=== PATIENT | male | born 1950 | race Caucasian/White ===

== ENCOUNTER 2019-09-24 13:45 | Inpatient (IN) | payer OTHER ==
[~2019-09-24] VITALS: Ht 185.4 cm; Wt 107.5 kg
[2019-09-24 13:47] VITALS: BP 146/67
[2019-09-24 14:33] LABS: BASO # 0.1 10*3/uL (0.0-0.1); BASO % 0.8 % (0.0-1.0); EOS # 0.1 10*3/uL (0.0-0.4); EOS % 1.3 % (1.0-4.0); HEMATOCRIT 42.4 % (42.0-52.0); HEMOGLOBIN 13.9 g/dl (14.0-18.0); LYMPH # 3.3 10*3/uL (1.3-4.4); LYMPH % 34.4 % (27.0-41.0); MEAN CORPUSCULAR HGB 30.8 pg (27.0-31.0); MEAN CORPUSCULAR HGB CONC 32.8 g/dl (33.0-37.0); MEAN PLATELET VOLUME 9.9 fl (9.6-12.3); MONO # 1.2 10*3/uL (0.1-1.0); MONO % 12.3 % (3.0-9.0); NEUT # 4.9 10*3/uL (2.3-7.9); PLATELET COUNT AUTOMATED 293 10*3/uL (130-400); RED BLOOD COUNT 4.51 10*6/uL (4.50-5.90); RED CELL DISTRI WIDTH 13.2 % (0-14.5); WHITE BLOOD COUNT 9.7 10*3/uL (4.8-10.8)
--- NOTE | 2019-09-24 14:40 | NUR ---
PT WAS PLACED IN A GROWN, STATES TO ME HE IS VERY SAD AND SHAKY. I ASKED HIM IF HE WAS SUICIAL AND HE STATES HE DOES NOT KNOW WHAT THAT MEASN, I RESTATED AND ASKED HIM IF HE WANTED HARMSELF OR , HE SAID NO, HE STATES" I AM SAD AND ANS SHAKY AND WASNT HELP FOR THAT BECAUSE MY MEDICAINE IS NOT WORKING". PT IS CALM AND COOPERTIVE.
[2019-09-24 14:41] LABS: ALBUMIN 3.5 gm/dl (3.1-4.5); ALKALINE PHOSPHATASE 54 U/L (45-117); BUN 14 mg/dl (7-24); CHLORIDE 111 mmol/L (98-107); CREATININE 1.08 mg/dL (0.70-1.30); POTASSIUM 5.1 mmol/L (3.5-5.1); SGOT/AST 33 IU/L (3-35); SGPT/ALT 20 U/L (12-78); SODIUM 142 mmol/L (136-145); TOTAL PROTEIN 7.4 gm/dL (6.4-8.2)
[2019-09-24 14:45] LABS: ACETAMINOPHEN (TYLENOL) < 5.0 ug/ml (10-30); ETHYL ALCOHOL < 3.0 mg/dl (<3)
[2019-09-24 14:53] LABS: BILIRUBIN NEGATIVE (NEGATIVE); BLOOD 1+ (NEGATIVE); CLARITY CLEAR (CLEAR); COLOR YELLOW (YELLOW); GLUCOSE NEGATIVE (NEGATIVE); KETONE NEGATIVE (NEGATIVE); LEUKO ESTERASE NEGATIVE (NEGATIVE); NITRITE NEGATIVE (NEGATIVE); SPECIFIC GRAVITY <= 1.005 (1.005-1.030); UROBILINOGEN 0.2 E.U./dl (0.2-1.0)
[2019-09-24 15:01] LABS: URINE AMPHETAMINES < 1000 (1000ng/ml); URINE BARBITURATES < 200 (200ng/ml); URINE BENZODIAZEPINES < 200 (200ng/ml); URINE CANNABINOIDS (THC) < 50 (50ng/ml); URINE COCAINE < 300 (300ng/ml); URINE METHADONE < 300 (300ng/ml); URINE OPIATES < 300 (300ng/ml)
[2019-09-24 15:02] LABS: BACTERIA TRACE
[2019-09-24 15:05] LABS: URINE PHENCYCLIDINE < 25 (25ng/ml)
[2019-09-24 16:01] VITALS: BP 138/78
--- NOTE | 2019-09-24 16:01 | NUR ---
PT RESTINF IN BED, VOICES NO COMPLAINTS. PT REMAINS CLAM AND COOPERATIVE.
--- NOTE | 2019-09-24 16:37 | NUR ---
PT RESTING QUIETLY, WAITING FOR U BED.
[2019-09-24 17:02] VITALS: BP 136/63
[2019-09-24 17:16] VITALS: BP 136/63
[2019-09-24] MEDS ORDERED: COGENTIN0.5 MG PO (17:42)
[2019-09-24] MEDS ORDERED: NEXIUM20 M1 PO (17:43)
[2019-09-24] MEDS ORDERED: NAMENDA-21 PO (17:43)
[2019-09-24] MEDS ORDERED: ARICEPT10 M1 PO (17:44)
[2019-09-24] MEDS ORDERED: CRESTOR20 M1 PO (17:44)
[2019-09-24] MEDS ORDERED: VITAMIN D50000 UNIT PO (17:45)
[2019-09-24] MEDS ORDERED: ASPIRIN ADULT L81 M1 PO (17:46)
[2019-09-24] MEDS ORDERED: NORVASC5 MG PO (17:46)
[2019-09-24] MEDS ORDERED: VISTARIL25 MG PO (17:47)
[2019-09-24] MEDS ORDERED: SEROQUEL50 MG PO (17:48)
--- NOTE | 2019-09-24 17:48 | NUR ---
ANDRESSALEDA HENRY a 69 year old M admitted via wheel chair from the EMERGENCY ROOM as a voluntary admission. Arrived on unit at 1726 ALLERGIES: PCN . Vital signs are: 97.7-79-20 136/63-97%RA. VERBAL CONSENT RECEIVED FROM GUARDIAN the following forms with stated understanding: Authorization For The Release of Medical Information, Clothing List, Consent to Voluntary Admission and Hospitalization, Consent and Release Forms/Receipt of Rights, Acknowledgement of Advance Directive Information, Behavioral Health Consent Form, and Informed Consent of Medications. Admitted under the services of Dr. LORI COLE,[facility]. A search was conducted and hazardous articles were removed. Client was oriented to the unit. [place] MARSHALL PT ALERT TO PERSON, PLACE, TIME AND SITUATION. PT PLEASANT AND COOPERATIVE WITH STAFF AND PEERS. PT AMBULATORY THROUGHOUT UNIT, GAIT STEADY. PT CONTINENT OF BOWEL AND BLADDER. PT DENIES ANY SUICIDAL THOUGHTS AT THIS TIME, VERBALLY CONTRACTS FOR SAFETY IF SUCH THOUGHTS ARISE.
[2019-09-24] MEDS ORDERED: TYLENOL EXTRA500 MG PO (17:49)
[2019-09-24] MEDS ORDERED: DEPAKOTE250 MG PO (17:51)
[2019-09-24] MEDS ORDERED: SEROQUEL300 MG PO (17:52)
[2019-09-24] MEDS ORDERED: REMERON15 M2 PO (17:52)
[2019-09-24] MEDS ORDERED: REQUIP0.25 M1 PO (17:52)
[2019-09-24] MEDS ORDERED: DEPAKOTE500 MG PO (17:53)
[2019-09-24] MEDS ORDERED: [UNRECOGNIZED DRUG - OTHER] PO (17:54)
--- NOTE | 2019-09-24 17:54 | NUR ---
SPOKE WITH DR SANDOVAL ADVISED PT HAS A SUICIDE SCORE OF [address] PT ON LINE OF SIGHT. ERICKOSN NURSING LOG HANDLING EQUIPMENT OPERATOR UPDATED.
[2019-09-24] MEDS ORDERED: TESSALON PERLE100 MG PO (17:55)
[2019-09-24] MEDS ORDERED: ZYRTEC10 MG PO (17:55)
[2019-09-24] MEDS ORDERED: ARTIFICIAL TEAR1514 OP (17:57)
[2019-09-24] MEDS ORDERED: BISACODYL LAXATI5 MG PO (17:57)
[2019-09-24] MEDS ORDERED: BION TEARS EYE1 EAC1 OP (17:58)
[2019-09-24] MEDS ORDERED: PEPTO BISM525 MG/12 PO (18:01)
[2019-09-24] MEDS ORDERED: IMODIUM A-D2 M2 PO (18:02)
[2019-09-24] MEDS ORDERED: ROBITUSSIN DM 105 ML PO (18:02)
[2019-09-24] MEDS ORDERED: BENGAY GREASELE57 GM T (18:04)
[2019-09-24] MEDS ORDERED: Nystatin Cream15 GM T (18:05)
--- NOTE | 2019-09-24 18:14 | NUR ---
SPOKE WITH DR. PHILLIPS AT [phone] RE: PT MEDS IN FOR REVIEW. NO FURTHER ORDER AT THIS TIME.
[2019-09-24 20:00] VITALS: BP 140/80
--- NOTE | 2019-09-24 21:15 | NUR ---
P---DEPRESSION I--DISCUSSED COPING SKILLS, MEDICATED AFTER EDUCATED ON MEDS, EMOTIONAL SUPPORT PRIVIDED. TIME ALLOWED FOR CLIENT TO TALK ABOUT HIS DAY R--OH I AM NOT SUICIDAL NOW. I DON'T KNOW WHY BUT IT JUSTS COMES AND GOES. I DON'T LIKE HAVING TO BE WATCHED ALL THE TIME P--EMOTIONAL SUPPORT, REINFORCE HIS STREGNTHS TO HIM. MONITOR FOR CHANGES IN BEHAVIOR/MOOD
--- NOTE | 2019-09-24 22:31 | NUR ---
CLIENT UPSET THAT SOMEONE IS WATCHING HIM SLEEP. STATES HE CAN'T SLEEP WITH LIGHT IN THE ROOM. EXPLAINED NO ONE IS ALLOWED TO HAVE THEIR DOORS SHUT BECAUSE WE CHECK ON EVERYONE EVERY 15 MINUTES. CONTINUES TO DEMAND DOOR BE SHUT. EMOTIONAL SUPPORT PROVIDED
--- NOTE | 2019-09-25 04:14 | NUR ---
24 HR chart check completed.
--- NOTE | 2019-09-25 05:13 | NUR ---
C/O "BAD" PAIN LEFT LOWER CALF AND ANKLE. HOMENS SIGN NEGATIVE. GOOD PEDAL AND POSTERIOR PULSE. ANELGESIC RUB APPLIED AND TYLENOL GIVEN
--- NOTE | 2019-09-25 06:11 | NUR ---
APPEARS TYLENOL AND MUSCLE CREAM EFFECTIVE. EYES CLOSED RESP EASY NON LABORED
--- NOTE | 2019-09-25 06:14 | NUR ---
SLEPT APPROX 5.5 HOURS
[2019-09-25 07:23] LABS: ALBUMIN 3.1 gm/dl (3.1-4.5); ALKALINE PHOSPHATASE 48 U/L (45-117); BUN 15 mg/dl (7-24); CHLORIDE 110 mmol/L (98-107); CHOLESTEROL 96 mg/dL (<200); CREATININE 1.05 mg/dL (0.70-1.30); HDL CHOLESTEROL 44 mg/dl (40-60); LDL CHOLESTEROL 36 mg/dL (9-159); POTASSIUM 4.2 mmol/L (3.5-5.1); SGOT/AST 17 IU/L (3-35); SGPT/ALT 20 U/L (12-78); SODIUM 143 mmol/L (136-145); TOTAL PROTEIN 6.8 gm/dL (6.4-8.2); TRIGLYCERIDES 82 mg/dl (<150); VLDL CHOLESTEROL 16 mg/dL (6-40)
[2019-09-25 07:27] LABS: BASO # 0.1 10*3/uL (0.0-0.1); BASO % 0.7 % (0.0-1.0); EOS # 0.2 10*3/uL (0.0-0.4); EOS % 2.3 % (1.0-4.0); HEMATOCRIT 41.1 % (42.0-52.0); HEMOGLOBIN 13.3 g/dl (14.0-18.0); LYMPH # 2.9 10*3/uL (1.3-4.4); LYMPH % 29.6 % (27.0-41.0); MEAN CELL VOLUME 93.6 fl (80.0-94.0); MEAN CORPUSCULAR HGB 30.3 pg (27.0-31.0); MEAN CORPUSCULAR HGB CONC 32.4 g/dl (33.0-37.0); MEAN PLATELET VOLUME 9.7 fl (9.6-12.3); MONO # 1.2 10*3/uL (0.1-1.0); MONO % 12.4 % (3.0-9.0); NEUT # 5.4 10*3/uL (2.3-7.9); NEUT % 54.7 % (47.0-73.0); PLATELET COUNT AUTOMATED 262 10*3/uL (130-400); RED BLOOD COUNT 4.39 10*6/uL (4.50-5.90); RED CELL DISTRI WIDTH 13.1 % (0-14.5); WHITE BLOOD COUNT 9.9 10*3/uL (4.8-10.8)
[2019-09-25 07:45] VITALS: BP 135/81
--- NOTE | 2019-09-25 08:15 | NUR ---
Treatment Plan meeting was held with Dr. Caal, RN, AT, [facility] and [facility]. Plan for discharge Next week. Pt. came [place] from [facility] [place]. Will reach out to facility today to discuss discharge Planning.
--- NOTE | 2019-09-25 08:59 | NUR ---
Spoke with Dotty at The [facility] [place]. Pt. will return to the [facility] [place] at discharge. Provided Updates and Faxed Clinical Updates to Facility [phone].
--- NOTE | 2019-09-25 11:02 | NUR ---
DR ROMAN AND TEAM ON UNIT TO SEE PATIENT
--- NOTE | 2019-09-25 11:49 | NUR ---
AM GROUP/EXERCISE AND BRAIN GAMES PT ATTENDED MORNING GROUP THERAPY AND PARTICIPATED IN ALL ACTIVITIES. PT EXPRESSED NO SUICIDAL IDEATIONS WHILE IN GROUP. PT WAS ENGAGED AND ON TASK.
--- NOTE | 2019-09-25 12:45 | NUR ---
Faxed admission clinical to [facility]. Awaiting response.
--- NOTE | 2019-09-25 14:00 | NUR ---
Occupational Therapy referral received and screen completed. Patient is independent in functional mobility on the 3N unit per nursing and is able to complete his ADLs. At this time no further OT indicated. Discharge OT referral. Thank you. Juany Tracy OTR/L
[2019-09-25 15:04] LABS: VITAMIN D, 25-HYDROXY 71.1 ng/mL (30-100)
--- NOTE | 2019-09-25 15:12 | NUR ---
PHYSICAL THERAPY [place] received for therapy evaluation, however observed pt transfering and amb independently in hallway, spoke with nursing and feel pt is at his baseline and no functional safety issues to be addressed at this time. Will D/C PT order, please reconsult if status changes, thank you. Divya Reyna PT
[2019-09-25 19:04] VITALS: BP 149/63
--- NOTE | 2019-09-25 22:07 | NUR ---
STATES HE HAD A TERRIBLE DAY. HAD A MIGRANINE THAT TYLENOL DIDN'T TOUCH. DECLINED TYLENOL AT THIS TIME. DENIES ANY SUICIDAL IDEATION. STATES FEELING BETTER IN THAT WAY. STATES SLEPT POOR LAST NIGHT BUT ACTUALLY SLEPT WELL.
--- NOTE | 2019-09-26 04:13 | NUR ---
24 HR chart check completed.
--- NOTE | 2019-09-26 06:14 | NUR ---
SLEPT PASSED 2145PM
[2019-09-26 07:46] VITALS: BP 135/59
--- NOTE | 2019-09-26 10:53 | NUR ---
DR. ROMAN ON UNIT TO ASSESS PATIENT.
--- NOTE | 2019-09-26 11:53 | NUR ---
AM GROUP/DISCUSSION/COPING PT ATTENDED AND PARTICIPATED SOME IN DISCUSSION BUT MOSTLY FOCUSED ON JIGSAW PUZZLE. PT DID NOT EXPRESS ANY S.I. AT THIS TIME AND WILL CONTINUE TO ATTEND AN DPARTICIPATE IN FUTURE GROUP SESSIONS.
--- NOTE | 2019-09-26 15:20 | NUR ---
Shift chart check completed.
--- NOTE | 2019-09-26 15:27 | NUR ---
PATIENT IS ALERT AND ORIENTED TO PERSON, PLACE, TIME AND SITUTAION; ABLE TO VOICE NEEDS. ANSWERS QUESTIONS APPROPRIATELY., SLOW TO THOUGHT PROCESS. MOOD IS SLIGHTLY DEPRESSED. DENIES ANY HALLUCINATIONS, DELUSIONS, HI/SI OR PAIN. MEDICATION COMPLAINT [facility] EDUCATION PROVIDED. PATIENT NOT RECEPTIVE TO TEACHING, STATING "I JUST TAKE THE MEDICATIONS GIVEN TO ME" ASKED PATIENT ABOUT WHAT BROUGHT HIM TO THE HOSPITAL. PATIENT STATED "SOMEONE SAID SOMETHING, I DON'T KNOW. I KNOW I NEEDED TO COME IN" ONE ON ONE PROVIDED FOR EMOTIONAL SUPPORT. PATIENT INTERACTIVE WITH STAFF AND OTHER PATIENTS. PARTICIPATED IN GROUP SESSION. ENJOYS BEING IN DINING ROOM WORKING ON [employer]. Q 15 MINUTE SAFETY CHECKS. AMBULATORY WITH STEADY GAIT. CONTINUE TO MONITOR MOOD AND PROVIDE ONE ON ONE FOR EMOTIONAL SUPPORT NEEDED.
--- NOTE | 2019-09-26 15:49 | NUR ---
PM GROUP/LEISURE SKILLS/FOOTBALL PT ATTENDED AND PARTICIPATED BY WORKING A JIGSAW PUZZLE. PT ON TASK AND FOCUSED WITH NO EXPRESSIONS OF S.I. AT THIS TIME. PT WILL CONTINUE TO ATTEND AN DPARTICIPATE IN FUTURE GROUP SESSIONS TO BEST OF ABILITY.
[2019-09-26 19:59] VITALS: BP 134/67
--- NOTE | 2019-09-26 21:07 | NUR ---
P CONFUSION INTERACTING WITH PEER AND STAFF I ONE ON ONE INTERACTION, ENCOURAGED TO INTERACT SOCIALLY WITH STAFF AND PEERS R PATIENT IS INTERACTING WITH PEERS AND STAFF. HIS MOOD IS STABLE. PATIENT DENIES AND AGITATION, HALLUCINATIONS. DENIES PAIN CURRENTLY. ALERT TO PERSON AND PLACE. GAIT IS STEADY WITH AMBULATION. NO PHYSICAL OR VERBAL AGRESSION NOTED CURRENTLY. P CONTINUE TO MONITOR FOR HALLUCINATIONS AGGRESSION AND SAFETY.
--- NOTE | 2019-09-27 05:19 | NUR ---
PATIENT SLEPT 8HRS THROUGHOUT SHIFT WITH NO INTERRUPTIONS
[2019-09-27 07:50] VITALS: BP 142/69
--- NOTE | 2019-09-27 10:00 | NUR ---
DR. ROMAN ON UNIT TO ASSESS PATIENT.
--- NOTE | 2019-09-27 12:07 | NUR ---
AM GROUP/EXERCISE/BRAIN GAMES PT ATTENDED AND PARTICIPATED IN GROUP. PT MOSTLY FOCUSING ON JIGSAW PUZZLE. PT EXPRESSED NO SUICIDAL IDEATIONS AT THIS TIME. PT WILL CONITNUE TO ATTEND AND PARTICIPATE IN FUTURE GROUP SESSIONS.
--- NOTE | 2019-09-27 18:03 | NUR ---
PATIENT IS ALERT AND ORIENTED TO PERSON, PLACE, TIME AND SITUTAION; ABLE TO VOICE NEEDS. ANSWERS QUESTIONS APPROPRIATELY. SLOW TO THOUGHT PROCESS. MOOD IS STABLE. DENIES ANY HALLUCINATIONS, DELUSIONS, HI/SI OR PAIN. MEDICATION COMPLAINT [facility] EDUCATION PROVIDED. PATIENT INTERACTIVE WITH STAFF AND OTHER PATIENTS. PARTICIPATED IN GROUP SESSION. ENJOYS BEING IN DINING ROOM WORKING ON [employer]. Q 15 MINUTE SAFETY CHECKS. AMBULATORY WITH STEADY GAIT. CONTINUE TO MONITOR MOOD AND PROVIDE ONE ON ONE FOR EMOTIONAL SUPPORT NEEDED.
[2019-09-27 19:55] VITALS: BP 120/63
--- NOTE | 2019-09-27 21:30 | NUR ---
Patient alert and oriented x4. Mood slightly depressed. Slow to answer questions at times. No signs of any hallucinations noted at this time. Patient compliant with medications without any difficulty. Provided 1:1 for emotional support. Patient in diningroom interacting with staff and other patients. Patient also ambulating in hallway with steady gait. Q 15 mnute safety checks continued and maintained. Plan to continue to encourage medication compliance. Also continue to provide emotional support. Will also conitnue to monitor behavior. See [facility] flowsheet for further documentation.
--- NOTE | 2019-09-28 00:17 | NUR ---
24 HR chart check completed.
--- NOTE | 2019-09-28 05:17 | NUR ---
Patient slept approx. 7 hours throughout shift without any interruptions. Q 15 minutes safety checks continued and maintained.
[2019-09-28 07:49] VITALS: BP 134/86
--- NOTE | 2019-09-28 08:30 | NUR ---
Treatment Plan meeting was held this a.m. with Dr. Caal, RN, AT, [facility] and Progressive Care Manager in attendance. Plan for discharge Saturday. Pt. will return to the [facility] [place] at discharge.
--- NOTE | 2019-09-28 09:43 | NUR ---
PATIENT COMPLAINED OF HAVING A HEADACHE. RATING PAIN 10/10. PRN TYLENOL 650MG PO GIVEN.
--- NOTE | 2019-09-28 10:30 | NUR ---
IP 4 days brittnee per [facility], NRD 09/28. Ref # [id number]
--- NOTE | 2019-09-28 10:43 | NUR ---
NO FURTHER COMPLAINTS OF HEADACHE. PRN TYLENOL EFFECTIVE.
--- NOTE | 2019-09-28 10:45 | NUR ---
Faxed [facility] to [facility]. Awaiting response.
--- NOTE | 2019-09-28 11:34 | NUR ---
Spoke with Dotty the Nurse at the [facility] [place]. Advised of plans to discharge Saturday. Facility will transport via wheelchair Van with [facility] time 1:30 p.m. Provided with updates and faxed Clinical Documentation to Facility [phone] Attn: Dotty. Spoke with Pt. Legal Guardian Elder Amador with [facility] and Provided hime with updates and plan for discharge. Elder Requests Discharge Summary and Medication list faxed to him at [phone] at Discharge.
--- NOTE | 2019-09-28 11:40 | NUR ---
AM GROUP PT ATTENDED AND PARTICIPATED IN MORNING GROUP THERAPY BY WORKING ON A JIGSAW PUZZLE. PT WAS QUIET AND ON TASK. PT EXPRESSED NO SUICIDAL IDEATIONS WHILE IN GROUP.
--- NOTE | 2019-09-28 13:03 | NUR ---
PATIENT IS ALERT AND ORIENTED TO PERSON, PLACE, TIME AND SITUATION;ABLE TO VOICE NEEDS. MOOD IS STABLE, SLOW THOUGHT PROCESS NOTED. DENIES ANY HALLUCINATIONS, DELUSIONS, HI/SI. PATIENT RECIEVED PRN TYLENOL 650MG PO FOR HEADACHE 7/10 PAIN AND EFFECTIVE. PATIENT INTERACTIVE WITH STAFF AND OTHER PATIENTS. PARTICIPATES IN GROUP SESSION. LIKES WORKING ON PUZZLES IN DINING ROOM. MEDICATION COMPLAINT WITH EDUCATION PROVIDED. Q 15 MINTUE SAFETY CHECKS MAINTAINED. CONTINUE TO MONITOR MOOD, VOICE STATEMENT OF SI; PROVIDE ONE ON ONE FOR EMOTIONAL SUPPORT, ENCOURAGE GROUP PARTICIPATION AND INTERACTING WITH STAFF AND OTHER PATIENTS.
--- NOTE | 2019-09-28 14:32 | NUR ---
[place] Romano at [facility] is going for peer review. Dr. Caal notified.
--- NOTE | 2019-09-28 15:30 | NUR ---
PM GROUP/LEISURE INTERESTS PT ATTENDED AFTERNOON GROUP THERAPY AND PARTICIPATED BY DOING A JIGSAW PUZZLE. PT EXPRESSED NO SUICIDAL IDEATIONS WHILE IN GROUP
[2019-09-28 20:00] VITALS: BP 149/61
--- NOTE | 2019-09-28 20:44 | NUR ---
EVENING/COLOR THERAPY/LEISURE PT IN ATTENDANCE WORKING ON A WORDSEARCH. PT COMPLETED WORDSEARCH AND FOCUSING ON COLOR THERAPY STATING "WOW THERE ARE A LOT OF COLORS, THIS IS RELAXING" PT PLEASANT WITH NO EXPRESSION OF S.I. AT THIS TIME. PT WILL CONTINUE TO ATTEND AN DPARTICIPATE IN FUTRUE GROUP SESSIONS.
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
--- NOTE | 2019-09-29 04:14 | NUR ---
24 HR chart check completed.2
--- NOTE | 2019-09-29 05:58 | NUR ---
SLEPT APROX 8 HOURS UNINTERUPTED
[2019-09-29 07:44] VITALS: BP 135/68
--- NOTE | 2019-09-29 08:00 | NUR ---
DR. WHITEHEAD ON UNIT TO ASSESS PATIENT.
--- NOTE | 2019-09-29 08:15 | NUR ---
Treatment Plan meeting was held this a.m. with Dr. Caal, RN, AT, [facility] and [facility] in attendance. Plan for discharge today. Dr. Caal did the PEER to PEER via telephone this a.m. and they reviewer recommends discharge. Spoke with Pt. Roberth Amador and notified him. Also Spoke with Dotty the Nurse at the [facility] [place] and Advised that discharge would be today. Transportation arranged with [facility] per Rot[facility] Schedule backup. Nursing Staff notified.
--- NOTE | 2019-09-29 08:42 | NUR ---
Patient resting quietly with no c/o discomfort. Respirations easy and regular. Vital signs stable. No overt distress. ERICKSON DUNHAM
--- NOTE | 2019-09-29 09:02 | NUR ---
DR. ALMODOVAR NOTIFIED OF PATIENT BEING DISCHARGE, TO INFORM DR. WHITEHEAD OF PATIENT'S DISCHARGE FOR TODAY.
[2019-09-29] MEDS ORDERED: MIRTAZAPINE15 M2 PO (09:03)
[2019-09-29] MEDS ORDERED: Mysoline50 MG PO (09:03)
[2019-09-29] MEDS ORDERED: MEMANTINE HCL10 MG PO (09:03)
[2019-09-29] MEDS ORDERED: RIVASTIGMINE1 EAC1 T (09:03)
--- NOTE | 2019-09-29 11:39 | NUR ---
Discharge paperwork Faxed to The [facility] [place] Attn: Dotty [phone].
--- NOTE | 2019-09-29 11:44 | NUR ---
AM GROUP PT ATTENDED MORNING GROUP THERAPY AND PARTICIPATED BY WORKING ON A JIGSAW PUZZLE. PT WAS FOCUSED AND ON TASK. PT EXPRESSED NO SUICIDAL IDEATIONS WHILE IN GROUP. PT IS SET TO BE DISCHARGED FROM THE UNIT SOME TIME TODAY.
--- NOTE | 2019-09-29 11:51 | NUR ---
NURSE TO NURSE REPORT GIVEN TO MESERET AT [facility].
--- NOTE | 2019-09-29 11:53 | NUR ---
PATIENT IS ALERT AND ORIENTED TO PERSON, PLACE, TIME AND SITUATION;ABLE TO VOICE NEEDS. MOOD IS STABLE, SLOW THOUGHT PROCESS NOTED. PLEASANT DEMEANOR, JOKING WITH NURSING STAFF. DENIES ANY HALLUCINATIONS, DELUSIONS, HI/SI OR PAIN. PATIENT INTERACTIVE WITH STAFF AND OTHER PATIENTS. PARTICIPATES IN GROUP SESSION. LIKES WORKING ON PUZZLES IN DINING ROOM. MEDICATION COMPLAINT WITH EDUCATION PROVIDED. Q 15 MINTUE SAFETY CHECKS MAINTAINED. CONTINUE TO MONITOR MOOD, VOICE STATEMENT OF SI; PROVIDE ONE ON ONE FOR EMOTIONAL SUPPORT, ENCOURAGE GROUP PARTICIPATION AND INTERACTING WITH STAFF AND OTHER PATIENTS.
--- NOTE | 2019-09-29 14:10 | NUR ---
Time spent with pt prior to discharge. Pt was pleasant and voiced that he feels ready for discharge. Pt stated that being at [facility] was exactly what he needed. Pt spoke of his love of jigsaw puzzles and that he has 137 puzzles at his [place] apartment. Pt had completed a jigsaw puzzle at [facility] that was a picture of a vazquez. Pt spoke of the vazquez and then [place]. Pt is denying suicidal ideations. Pt stated that he is looking forward to getting back to the [place] to sleep in his own bed and to be around his friends.
--- NOTE | 2019-09-29 14:20 | NUR ---
Patient is discharging today returning to The [facility] [place]. Follow-up will be nicol Caal, visiting psychiatrist. While at [facility], pt's mood improved. Pt is denying suicidal ideations and voiced an appreciation for his [facility] admission. Pt is future oriented as he spoke of [place] to the [place] to be around his friends.
--- NOTE | 2019-09-29 15:39 | NUR ---
PM GROUP PT WAS PRESENT FOR AFTERNOON GROUP THERAPY BUT DID NOT PARTICIPATE HE WAS EXPECTING HIS TRANSPORTATION.
--- NOTE | 2019-09-29 16:09 | NUR ---
Shift chart check completed.
--- NOTE | 2019-09-29 16:58 | NUR ---
PT OFF THE UNIT AT THIS TIME. VITAL SIGNS STABLE. NO ADVERSE MOODS OR BEHAVIORS NOTED.
--- NOTE | 2019-09-30 12:00 | NUR ---
Faxed discharge to Mirella at [facility] and spoke to Mirella regarding patient discharging yesterday. IP brittnee. Ref # [id number]
== END 2019-09-29 16:57 | disposition home or self-care (01) | DRG 885 ==
LOC: ED 13:45 → 3N 16:36
PROVIDERS: Nurse Practitioner Family; ADMIT Psychiatry & Neurology Psychiatry
DX: F33.2 Major depressive disorder, recurrent severe without psychotic features (principal); R45.851 Suicidal ideations; D64.9 Anemia, unspecified; E87.8 Other disorders of electrolyte and fluid balance, not elsewhere classified; R73.9 Hyperglycemia, unspecified; G30.9 Alzheimer's disease, unspecified; F02.80 Dementia in other diseases classified elsewhere, unspecified severity, without behavioral disturbance, psychotic disturbance, mood disturbance, and anxiety; M54.5 Low back pain; G89.29 Other chronic pain; K21.9 Gastro-esophageal reflux disease without esophagitis; I25.10 Atherosclerotic heart disease of native coronary artery without angina pectoris; F41.9 Anxiety disorder, unspecified; I10 Essential (primary) hypertension; E66.9 Obesity, unspecified; Z88.0 Allergy status to penicillin; Z87.891 Personal history of nicotine dependence; Z82.3 Family history of stroke; Z79.899 Other long term (current) drug therapy; Z79.82 Long term (current) use of aspirin; Z68.31 Body mass index [BMI] 31.0-31.9, adult

== ENCOUNTER 2024-09-03 14:02 | Inpatient (IN) | payer OTHER ==
[~2024-09-03] VITALS: Ht 190.5 cm; Wt 105.2 kg
[~2024-09-03 14:02] MED LIST: ARICEPT10 M1 PO; ARTIFICIAL TEAR1514 OP; ASPIRIN ADULT L81 M1 PO; BENGAY GREASELE57 GM T; BION TEARS EYE1 EAC1 OP; BISACODYL LAXATI5 MG PO; COGENTIN0.5 MG PO; CRESTOR20 M1 PO; DEPAKOTE250 MG PO; DEPAKOTE500 MG PO; IMODIUM A-D2 M2 PO; MEMANTINE HCL10 MG PO; MIRTAZAPINE15 M2 PO; Mysoline50 MG PO; NAMENDA-21 PO; NEXIUM20 M1 PO; NORVASC5 MG PO; Nystatin Cream15 GM T; PEPTO BISM525 MG/12 PO; REMERON15 M2 PO; REQUIP2 MG PO; RIVASTIGMINE1 EAC1 T; ROBITUSSIN DM 105 ML PO; SEROQUEL300 MG PO; SEROQUEL50 MG PO; TESSALON PERLE100 MG PO; TYLENOL EXTRA500 MG PO; VISTARIL25 MG PO; VITAMIN D50000 UNIT PO; ZYRTEC10 MG PO; [UNRECOGNIZED DRUG - OTHER] PO
[2024-09-03] MEDS ORDERED: CALCIUM 500 MG1 EAC8 PO (16:03)
[2024-09-03] MEDS ORDERED: CLARITIN10 MG PO (16:12)
[2024-09-03] MEDS ORDERED: PEPCID20 MG PO (16:19)
[2024-09-03] MEDS ORDERED: OMEGA 3 1,0001 EACH PO (16:42)
[2024-09-03] MEDS ORDERED: FEROSUL325 M1 PO (16:42)
[2024-09-03] MEDS ORDERED: ZESTRIL40 MG PO (16:43)
[2024-09-03] MEDS ORDERED: MELATONIN5 M1 PO (16:44)
[2024-09-03] MEDS ORDERED: MYSOLINE50 M2 PO (16:45)
[2024-09-03] MEDS ORDERED: RIVASTIGMINE TAR3 M1 PO (16:46)
[2024-09-03] MEDS ORDERED: SEROQUEL XR300 MG PO (16:47)
[2024-09-03] MEDS ORDERED: METOPROLOL SUC200 M1 PO (16:48)
[2024-09-03] MEDS ORDERED: 'KLONOPIN0.5 MG PO (16:49)
[2024-09-03] MEDS ORDERED: FISH OIL 1,0001 EAC1 PO (16:50)
[2024-09-03] MEDS ORDERED: CLOBETASOL PROP15 GM T (16:54)
[2024-09-03] MEDS ORDERED: MG-AL HYDROXIDE/SIMETICONE 30 ML UDC PO PRN (17:20)
[2024-09-03] MEDS ORDERED: LORazepam 1 MG TAB PO PRN (17:20)
[2024-09-03] MEDS ORDERED: Magnesium Hydroxide 30 ML UDC PO PRN (17:20)
[2024-09-03] MEDS ORDERED: Water, Sterile 10 ML VIAL IM PRN (17:20)
[2024-09-03] MEDS ORDERED: ACETAMINOPHEN 325 MG TAB PO PRN (17:20)
[2024-09-03] MEDS ORDERED: Ziprasidone Mesylate 20 MG VIAL IM PRN (17:20)
[2024-09-03] MEDS ORDERED: LORazepam 2 MG/ML VIAL IM PRN (17:20)
[2024-09-03] MEDS ORDERED: Menthol/Zinc Oxide 4 GM THIN T PRN (17:30)
[2024-09-03] MEDS ORDERED: Rivastigmine Tartrate 3 MG CAP PO SCH (21:00)
[2024-09-03] MEDS ORDERED: Paliperidone 6 MG TER PO SCH (21:00)
[2024-09-03] MEDS ORDERED: Mirtazapine 15 MG TAB PO SCH (21:00)
[2024-09-03] MEDS ORDERED: Memantine Hydrochloride 10 MG TAB PO SCH (21:00)
[2024-09-03] MEDS ORDERED: clonAZEPAM 0.5 MG TAB PO SCH (21:00)
[2024-09-04 10:38] VITALS: BP 158/74
[2024-09-04] MEDS ORDERED: MILK OF MA400 MG/53 PO (11:59)
[2024-09-04] MEDS ORDERED: TAMSULOSIN HCL0.4 MG PO (12:00)
[2024-09-04] MEDS ORDERED: VITAMIN B121000 MC3 PO (12:01)
[2024-09-04] MEDS ORDERED: CEPACOL SORE T1 EACH PO (12:02)
[2024-09-04] MEDS ORDERED: COLACE100 MG PO (12:03)
[2024-09-04] MEDS ORDERED: MYLANTA MAXIMU355 M1 PO (12:03)
[2024-09-04] MEDS ORDERED: ELIQUIS5 M1 PO (12:04)
[2024-09-04] MEDS ORDERED: APRESOLINE25 MG PO (12:05)
[2024-09-04] MEDS ORDERED: KEPPRA500 MG PO (12:06)
[2024-09-04] MEDS ORDERED: OMNICEF300 MG PO (12:07)
[2024-09-04] MEDS ORDERED: DOXYCYCLINE50 M2 PO (12:08)
[2024-09-04] MEDS ORDERED: Tamsulosin Hydrochloride 0.4 MG CAP PO PRN (15:35)
[2024-09-04 20:03] VITALS: BP 143/73
[2024-09-04] MEDS ORDERED: APIXABAN 5 MG TAB PO SCH (21:00)
[2024-09-04] MEDS ORDERED: LEVETIRACETAM 500 MG TAB PO SCH (21:00)
[2024-09-04] MEDS ORDERED: METOPROLOL SUCCINATE XR 100 MG TAB PO SCH (21:00)
[2024-09-04] MEDS ORDERED: PRIMIDONE 50 MG TAB PO SCH (21:00)
[2024-09-04] MEDS ORDERED: Ropinirole Hydrochloride 1 MG TAB PO SCH (22:00)
[2024-09-05 07:00] LABS: HEMATOCRIT 36.8 % (42.0-52.0); MEAN CELL VOLUME 96.3 fl (80.0-94.0); MEAN CORPUSCULAR HGB 30.9 pg (27.0-31.0); MEAN CORPUSCULAR HGB CONC 32.1 g/dl (33.0-37.0); MEAN PLATELET VOLUME 9.5 fl (9.6-12.3); PLATELET COUNT AUTOMATED 428 10*3/uL (130-400); RED BLOOD COUNT 3.82 10*6/uL (4.50-5.90); WHITE BLOOD COUNT 14.6 10*3/uL (4.8-10.8)
[2024-09-05 07:01] LABS: MANUAL DIFF REFLEX YES
[2024-09-05 07:40] LABS: ALKALINE PHOSPHATASE 66 U/L (46-116); BUN 21 mg/dl (9-23); CHLORIDE 104 mmol/L (98-107); CHOLESTEROL 108 mg/dL (<200); LDL CHOLESTEROL 57 mg/dL (9-159); POTASSIUM 3.3 mmol/L (3.4-5.1); SGPT/ALT 37 U/L (5-49); TOTAL PROTEIN 7.2 gm/dL (6.0-8.0); TRIGLYCERIDES 97 mg/dl (<150)
[2024-09-05 07:47] LABS: PLATELET SUFFICIENCY HIGH (NORMAL); TOTAL CELLS COUNTED 100 #CELLS
[2024-09-05 08:06] LABS: VITAMIN D, 25-HYDROXY 101.9 ng/mL (30-100)
[2024-09-05 08:36] VITALS: BP 158/77
[2024-09-05] MEDS ORDERED: ASPIRIN, CHEWABLE 81 MG TAB PO SCH (09:00)
[2024-09-05] MEDS ORDERED: LORATADINE 10 MG TAB PO SCH (09:00)
[2024-09-05] MEDS ORDERED: FAMOTIDINE 20 MG TAB PO SCH (09:00)
[2024-09-05] MEDS ORDERED: Fish Oil 500 MG CAP PO SCH (09:00)
[2024-09-05] MEDS ORDERED: FERROUS SULFATE 325 MG TAB PO SCH (09:00)
[2024-09-05] MEDS ORDERED: ATORVASTATIN CALCIUM 20 MG TAB PO SCH (09:00)
[2024-09-05] MEDS ORDERED: amLODIPine besylate 5 MG TAB PO SCH (09:00)
[2024-09-05] MEDS ORDERED: LISINOPRIL 40 MG TAB PO SCH (09:00)
[2024-09-05] MEDS ORDERED: DIVALPROEX SODIUM 125 MG CAP PO SCH (13:00)
[2024-09-05 20:00] VITALS: BP 121/84
[2024-09-05] MEDS ORDERED: diphenhydrAMINE hydrochloride 50 MG/ML VIAL IM ONE (23:30)
[2024-09-05] MEDS ORDERED: Haloperidol Lactate 5 MG/ML AMP IM ONE (23:30)
[2024-09-05] MEDS ORDERED: LORazepam 2 MG/ML VIAL IM ONE (23:30)
[2024-09-06 08:00] VITALS: BP 119/67
[2024-09-06 08:45] LABS: ARTERIAL BLOOD GAS PH 7.48 (7.350-7.450); ARTERIAL BLOOD GAS PO2 55.4 mmHg (83.0-108.0)
[2024-09-06 08:49] LABS: BASO # 0.1 10*3/uL (0.0-0.1); BASO % 0.5 % (0.0-1.0); EOS # 0.3 10*3/uL (0.0-0.4); EOS % 2.4 % (1.0-4.0); HEMATOCRIT 38.8 % (42.0-52.0); LYMPH # 2.3 10*3/uL (1.3-4.4); LYMPH % 18.4 % (27.0-41.0); MEAN CELL VOLUME 94.6 fl (80.0-94.0); MEAN CORPUSCULAR HGB CONC 32.7 g/dl (33.0-37.0); MEAN PLATELET VOLUME 9.5 fl (9.6-12.3); NEUT # 8.7 10*3/uL (2.3-7.9); NEUT % 70.3 % (47.0-73.0); PLATELET COUNT AUTOMATED 482 10*3/uL (130-400); RED CELL DISTRI WIDTH 12.9 % (0-14.5); WHITE BLOOD COUNT 12.3 10*3/uL (4.8-10.8)
[2024-09-06] MEDS ORDERED: Doxycycline Hyclate 100 MG CAP PO SCH (09:00)
[2024-09-06 09:10] LABS: ALKALINE PHOSPHATASE 66 U/L (46-116); BUN 22 mg/dl (9-23); CHLORIDE 106 mmol/L (98-107); POTASSIUM 3.1 mmol/L (3.4-5.1); SGPT/ALT 40 U/L (5-49); TOTAL PROTEIN 6.9 gm/dL (6.0-8.0)
[2024-09-06] MEDS ORDERED: POTASSIUM CHLORIDE 20 MEQ TAB PO ONE (10:45)
[2024-09-06] MEDS ORDERED: SODIUM CHLORIDE 0.9% 1,000 ML IV ONE (10:45)
[2024-09-06] MEDS ORDERED: Albuterol Sulf/Ipratropium 3 ML VIAL NEB SCH (11:08)
[2024-09-06] MEDS ORDERED: INVEGA6 MG PO (11:34)
[2024-09-06] MEDS ORDERED: DEPAKOTE SPRIN125 MG PO (11:35)
== END 2024-09-06 12:38 | disposition short-term general hospital (02) | DRG 885 ==
LOC: 3N 14:02
PROVIDERS: Counselor Professional; ADMIT Psychiatry & Neurology Psychiatry; ATTEND Psychiatry & Neurology Psychiatry
PROC: GZHZZZZ Group Psychotherapy (ICD-10-PCS; principal; 2024-09-05)
PROC: GZ51ZZZ Individual Psychotherapy, Behavioral (ICD-10-PCS; 2024-09-05)
PROC: 0HBRXZZ Excision of Toe Nail, External Approach (ICD-10-PCS; 2024-09-05)
PROC: 0HBRXZZ Excision of Toe Nail, External Approach (ICD-10-PCS; 2024-09-05)
PROC: 0HBRXZZ Excision of Toe Nail, External Approach (ICD-10-PCS; 2024-09-05)
PROC: 0HBRXZZ Excision of Toe Nail, External Approach (ICD-10-PCS; 2024-09-05)
PROC: 0HBRXZZ Excision of Toe Nail, External Approach (ICD-10-PCS; 2024-09-05)
PROC: 0HBRXZZ Excision of Toe Nail, External Approach (ICD-10-PCS; 2024-09-05)
PROC: 0HBRXZZ Excision of Toe Nail, External Approach (ICD-10-PCS; 2024-09-05)
PROC: 0HBRXZZ Excision of Toe Nail, External Approach (ICD-10-PCS; 2024-09-05)
PROC: 0HBRXZZ Excision of Toe Nail, External Approach (ICD-10-PCS; 2024-09-05)
PROC: 0HBRXZZ Excision of Toe Nail, External Approach (ICD-10-PCS; 2024-09-05)
DX: F33.2 Major depressive disorder, recurrent severe without psychotic features (principal); R45.851 Suicidal ideations; F25.9 Schizoaffective disorder, unspecified; F41.9 Anxiety disorder, unspecified; G30.9 Alzheimer's disease, unspecified; F02.80 Dementia in other diseases classified elsewhere, unspecified severity, without behavioral disturbance, psychotic disturbance, mood disturbance, and anxiety; K21.9 Gastro-esophageal reflux disease without esophagitis; I25.10 Atherosclerotic heart disease of native coronary artery without angina pectoris; G89.29 Other chronic pain; E66.9 Obesity, unspecified; I10 Essential (primary) hypertension; M54.9 Dorsalgia, unspecified; M51.9 Unspecified thoracic, thoracolumbar and lumbosacral intervertebral disc disorder; F29 Unspecified psychosis not due to a substance or known physiological condition; J44.9 Chronic obstructive pulmonary disease, unspecified; Z68.30 Body mass index [BMI] 30.0-30.9, adult; Z87.891 Personal history of nicotine dependence; Z82.3 Family history of stroke; Z88.0 Allergy status to penicillin; Z79.899 Other long term (current) drug therapy